=== PATIENT | female | born 1960 | race Caucasian/White ===

== ENCOUNTER 2020-05-12 09:24 | Outpatient (CLI) | payer OTHER, SELFPAY ==
--- NOTE | 2020-05-12 11:00 | NEURO_ITS ---
Patient Number: [id number] Impression: # Complains of right hand being stiff in am. History of carpal tunnel release. # Only right median sensory terminal latency prolonged compared to ulnar. # Normal needle/EMG exam; No evidence of myotonia or fibrillation. # Clinical correlation recommended. Nerve Conduction Studies Anti Sensory Summary Table Stim Site NR Peak (ms) P-T Amp (?V) Site1 Site2 Delta-P (ms) Dist (cm) Patric (m/s) Right Median Anti Sensory (2-3nd Digit) Wrist 3.4 39.7 Wrist 2-3nd Digit 3.4 14.0 41 Wrist 3.5 47.7 Wrist 2-3nd Digit 3.4 14.0 41 Right Radial Anti Sensory (Base 1st Digit) Wrist 2.3 28.3 Wrist Base 1st Digit 2.3 0.0 Right Ulnar Anti Sensory (5th Digit) Wrist 2.4 44.5 Wrist 5th Digit 2.4 14.0 58 Motor Summary Table Stim Site NR Onset (ms) O-P Amp (mV) Site1 Site2 Delta-0 (ms) Dist (cm) Patric (m/s) Right Median Motor (Abd Poll Brev) Wrist 3.3 5.1 Elbow Wrist 5.1 28.0 55 Elbow 8.4 4.1 Right Ulnar Motor (Abd Dig Minimi) Wrist 3.0 2.1 A Elbow Wrist 5.0 29.0 58 A Elbow 8.0 1.6 F Wave Studies NR F-Lat (ms) L-R F-Lat (ms) Right Median (Mrkrs) (Abd Poll Brev) 27.42 Right Ulnar (Mrkrs) (Abd Dig Min) 27.39 EMG Side Muscle Nerve Root Ins Act Fibs Amp Dur Recrt Comment Right 1stDorInt Ulnar C8-T1 Nml Nml Nml Nml Nml Right Ext Indicis Radial (Post Int) C7-8 Nml Nml Nml Nml Nml Right Ext Digitorum Radial (Post Int) C7-8 Nml Nml Nml Nml Nml Right BrachioRad Radial C5-6 Nml Nml Nml Nml Nml Right PronatorTeres Median C6-7 Nml Nml Nml Nml Nml Right Abd Poll Brev Median C8-T1 Nml Nml Nml Nml Nml Right ABD Dig Min Ulnar C8-T1 Nml Nml Nml Nml Nml MTDD
== END 2020-05-12 09:25 | disposition home or self-care (01) ==
PROVIDERS: PCP Internal Medicine; Visit Provider Nurse Practitioner
DX: R20.0 Anesthesia of skin (principal)
CPT/HCPCS: 95886; 95909

== ENCOUNTER 2020-12-29 11:37 | Outpatient (CLI) | payer OTHER, SELFPAY ==
--- NOTE | ~2020-12-29 | XR_ITS ---
XR wrist RT min 3V 12/29/2020 11:59 Indication: Right wrist pain Procedure: 4 views right wrist Comparison: No prior studies for comparison. Findings: There is an old ulnar styloid avulsion fracture. There is osteoarthritis of the triscaphe a nd first carpometacarpal joint. There are degenerative change of the first MCP and IP joints. No frac ture or traumatic malalignment. Osteopenia. No focal soft tissue abnormality. Impression: 1: Polyarticular osteoarthritis. Reviewed, dictated and finalized at location B. PROTECTION FABRICATOR Impression: 1: Polyarticular osteoarthritis.
== END 2020-12-29 11:38 | disposition home or self-care (01) ==
PROVIDERS: PCP Internal Medicine; Visit Provider Nurse Practitioner
DX: M19.031 Primary osteoarthritis, right wrist (principal)
CPT/HCPCS: 73110

== ENCOUNTER 2021-02-13 11:40 | Emergency (ER) | payer OTHER, SELFPAY ==
--- NOTE | ~2021-02-13 | XR_ITS ---
EXAMINATION: XR foot RT min 3V DATE: 02/13/2021 12:11 INDICATION: Right foot pain and swelling, initial encounter TECHNIQUE: Dorsoplantar, lateral, and 2 oblique views of the right foot were obtained. COMPARISON: None. FINDINGS: There is an acute, traumatic, closed, oblique fracture at the base of the second metatarsal . It is unclear if the fracture involves the joint space. The distal fracture fragment is laterally d isplaced by approximately 2 mm. There is dorsal soft tissue swelling of the foot. No additional acute osseous abnormality is identified. A plantar calcaneal enthesophyte is noted. IMPRESSION: 1. Acute, minimally displaced fracture at the base of the second metatarsal. Reviewed, dictated and finalized at location A.
[2021-02-13 11:59] VITALS: BP 117/59; PULSE 79; RESP 20; TEMP 37.2; O2SAT 100
--- NOTE | 2021-02-13 12:42 | ED.LOWEXIN ---
HPI - Extremity Injury (Lower) General Chief Complaint: Extremity Injury, Lower Stated Complaint: INJURED R FOOT Source: patient and RN notes reviewed Limitations: no limitations History of Present Illness HPI Narrative: The patient, previously mostly healthy on minimal meds, presents with foot pain. Patient states she has a 1 day history of right foot pain that is mild to moderate, worse with motion, better at rest and associated with swelling. No bleeding, deformity; symptoms began when she slipped after she started to arise quickly yesterday- after a shingles shot. She attributes brief lightheadedness to the immunization; no actual LOC, CP, S OB, calf pain/edema, palpitations-has been asymptomatic since then yesterday. She declines same-day hospital referral for presyncope/syncope, stating she will follow up with her PMD that she has lab tests scheduled soon anyway Related Data Home Medications Medication Instructions Recorded Confirmed paroxetine HCl 10 mg PO DAILY 02/13/21 02/13/21 Allergies Allergy/AdvReac Type Severity Reaction Status Date / Time No Known Allergies Allergy Unknown Verified 02/13/21 11:47 Review of Systems Review of Systems: Narrative: General/Constitutional: No weight loss,fever Eyes: N0: Redness,discharge Ears/Nose/Throat: No: Epistaxis,ear discharge Respiratory: Denies: Hemoptysis Gastrointestinal: No Vomiting, Bleeding-rectal Skin: No Lumps, eruption Neurologic: No Focal Weakness,Sz Hematologic: Denies: Petechiae/Purpura Psychiatric: No: Suicida ideationl All Other Systems: Reviewed and Negative PMFSH Past Medical History Medical History (Updated 02/13/21 @ 13:07 by William Cordoba MD) Anxiety Surgical History Surgical History (Updated 12/15/19 @ 07:51 by Edel Marcano CMA) History of carpal tunnel release Family History Family History (Updated 12/15/19 @ 07:54 by Edel Marcano CMA) Mother Heart disease Father Heart disease Hypertension Aneurysm Social History Social History (Updated 12/15/19 @ 07:54 by Edel Marcano CMA) Smoking status: Never smoker Alcohol intake: never Comments At time of signature, agree with nursing past medical, surgical, social and family history. There is no relevant family history pertinent to the presenting complaint Exam Narrative: Exam Narrative: General Appearance: Well appearing, Well nourished, No distress EYE: PERRLA, EOMI, Conjunctiva clear Mouth/Throat: Normal appearing, Normal lips, Supple Respiratory: Airway patent, No respiratory distress Musculoskeletal: Normal strength (mostly intact, limited flexion/extension by pain), Tenderness (proximal tarsal and laterally, with mild decreased ROM), Swelling (prox2-3rd metatarsal), Other (no anterior drawer, no collateral laxity, no Achilles tenderness, no fifth MT tenderness) Skin: Warm, Dry, Normal color Neurological: A&O x3, Speech clear, CN II-XII intact Psychiatric: Normal mood, Normal affect Course Course Emergency Course: Films visualized, interpreted by radiologist, agree, ABnormal see report Vital Signs Vital signs: Vital Signs Temperature 99.0 F 02/13/21 11:59 Pulse Rate 79 02/13/21 11:59 Respiratory Rate 20 02/13/21 11:59 Blood Pressure 117/59 L 02/13/21 11:59 Pulse Oximetry 100 02/13/21 11:59 Temperature 99.0 F 02/13/21 11:59 Pulse Rate 79 02/13/21 11:59 Respiratory Rate 20 02/13/21 11:59 Blood Pressure 117/59 L 02/13/21 11:59 Pulse Oximetry 100 02/13/21 11:59 Discharge Plan Discharge Clinical Impression: Episodic lightheadedness Fracture of metatarsal bone of right foot Qualifiers: Encounter type: initial encounter Metatarsal bone: second Fracture type: closed Fracture alignment: nondisplaced Qualified Code(s): S92.324A - Nondisplaced fracture of second metatarsal bone, right foot, initial encounter for closed fracture Patient Disposition: Home, Self-Care Condition: Improved I
== END 2021-02-13 13:02 | disposition home or self-care (01) ==
PROVIDERS: Emergency Provider Emergency Medicine; PCP Internal Medicine
DX: S92.324A Nondisplaced fracture of second metatarsal bone, right foot, initial encounter for closed fracture (principal); W01.0XXA Fall on same level from slipping, tripping and stumbling without subsequent striking against object, initial encounter; R42 Dizziness and giddiness; F41.9 Anxiety disorder, unspecified
CPT/HCPCS: 29515; 73630; 99214; G0463

== ENCOUNTER 2021-11-21 00:14 | Day surgery (SDC) | payer OTHER, SELFPAY ==
[2021-11-04 09:00] VITALS: BMI 25.9
--- NOTE | 2021-11-16 17:15 | PM.HPGS ---
History of Present Illness History of Present Illness Consent: Risks, benefits, and alternatives have been discussed and questions answered. Patient agrees to proceed with procedure. Chief complaint: neoplasm screening Narrative: Monisha Caldera is a 61 year old female referred for colon cancer screening Review of Systems Review of Systems: All systems reviewed & are unremarkable except as noted in HPI and below PMFSH Past Medical History Medical History Anxiety Claustrophobia Foot fracture, right (~01/2021) Vitamin D deficiency Surgical History Surgical History History of carpal tunnel release Bilateral Family History Family History Mother Heart disease Father Heart disease Hypertension Aneurysm Other Depression High cholesterol Social History Social History Social History: caffeine-4 cups daily coffee Smoking status: Never smoker Alcohol intake: never Substance use: never Substance use type: does not use Living arrangements: with family Gender identity (if verbalized by the patient): Female Spiritual care concerns: No Meds Home Medications and Allergies Home Medications Medication Instructions Recorded Confirmed Type atorvastatin 10 mg tablet 10 mg PO DAILY #90 tablet 09/15/21 11/04/21 Rx cholecalciferol (vitamin D3) 1,250 1,250 mcg PO WEEKLY #8 cap 09/15/21 11/04/21 Rx mcg (50,000 unit) capsule paroxetine HCl 10 mg tablet 10 mg PO DAILY #90 tablet 09/15/21 11/04/21 Rx sumatriptan succinate 100 mg tablet See Rx Instructions PO .COMPLEX #9 10/17/21 11/04/21 Rx tablet Allergies Allergy/AdvReac Type Severity Reaction Status Date / Time No Known Allergies Allergy Unknown Verified 11/21/21 07:39 Exam Const: General: alert Orientation/consciousness: patient oriented x3 Resp: Auscultation: clear to auscultation bilaterally Cardio: Rhythm: regular rhythm GI: GI Palp: Yes Soft to palpation and No Tenderness to palpation present (GI) Neuro: General: patient oriented x3 Assessment and Plan Assessment and plan (1) Screening for colon cancer: Code(s): Z12.11 - Encounter for screening for malignant neoplasm of colon Status: Acute Assessment and Plan: Colonoscopy with possible biopsy or polypectomy or cautery or injection of substances.
[2021-11-21 07:40] VITALS: BP 113/69; PULSE 82; RESP 18; TEMP 36.3; O2SAT 98
[2021-11-21] MEDS: LACTATED RINGERS 1,000 ML 150 ML IV CONT (08:14)
--- NOTE | 2021-11-21 08:14 | P.PNAN_ITS ---
Anes - Initial Pre Proc Eval Procedure: Operation Date: 11/21/21 08:30 Proposed Procedures p Screening Colonoscopy - Jacob Rahman MD Date/Time: 11/21/21 08:14 Surgeon: Jacob Rahman MD Pre Op Diagnosis: neoplasm screening Patient Data Age: 61 Gender: F Height: 1.68 m Weight: 69 kg Last Vital Signs Temp 36.3 C L 11/21/21 07:40 Pulse 82 11/21/21 07:40 Resp 18 11/21/21 07:40 BP 113/69 11/21/21 07:40 Pulse Ox 98 11/21/21 07:40 Allergies Allergy/AdvReac Type Severity Reaction Status Date / Time No Known Allergies Allergy Unknown Verified 11/21/21 07:39 Home Medications Medication Instructions Recorded Confirmed Type atorvastatin 10 mg tablet 10 mg PO DAILY #90 tablet 09/15/21 11/04/21 Rx cholecalciferol (vitamin D3) 1,250 1,250 mcg PO WEEKLY #8 cap 09/15/21 11/04/21 Rx mcg (50,000 unit) capsule paroxetine HCl 10 mg tablet 10 mg PO DAILY #90 tablet 09/15/21 11/04/21 Rx sumatriptan succinate 100 mg tablet See Rx Instructions PO .COMPLEX #9 10/17/21 11/04/21 Rx tablet Patient hx anesthesia problems: none Family hx anesthesia problems: none Results Review: All pre-operative results and documents have been reviewed as part of the pre-operative evaluation. [facility], [facility] Past Medical History Medical History Anxiety Claustrophobia Foot fracture, right (~01/2021) Vitamin D deficiency Surgical History Surgical History History of carpal tunnel release Bilateral Family History Family History Mother Heart disease Father Heart disease Hypertension Aneurysm Other Depression High cholesterol Social History Social History Social History: caffeine-4 cups daily coffee Smoking status: Never smoker Alcohol intake: never Substance use: never Substance use type: does not use Living arrangements: with family Gender identity (if verbalized by the patient): Female Spiritual care concerns: No Anes - Eval Final PreProcedure Day of Procedure 11/21/21 08:14 Patient weight: normal Heart: regular rate and rhythm Lungs: clear to auscultation Airway: Mallampati scale class II Neurological: alert and oriented Last oral intake: >/= 8 hours ASA classification: II Emergent: no Anesthesia type and monitoring: general GIVS and standard monitoring Results Review: All pre-operative results and documents have been reviewed as part of the pre-operative evaluation. Informed Consent: The patient's anesthetic plan and its attendant risks and benefits were discussed with the patient/family/POA. Questions were solicited and answers provided to the satisfaction of the patient/family/POA.
[2021-11-21 08:45] VITALS: BP 96/56; PULSE 71; RESP 14; O2SAT 98
[2021-11-21 08:55] VITALS: BP 100/56; PULSE 70; RESP 20; O2SAT 98
[2021-11-21 09:03] VITALS: BP 101/57; PULSE 69; RESP 14; O2SAT 98
== END 2021-11-21 09:18 | disposition home or self-care (01) ==
PROVIDERS: PCP Internal Medicine; Visit Provider Internal Medicine Gastroenterology
PROC: 0DJD8ZZ Inspection of Lower Intestinal Tract, Via Natural or Artificial Opening Endoscopic (ICD-10-PCS; CPT 45378; principal; 2021-11-21 08:30)
DX: Z12.11 Encounter for screening for malignant neoplasm of colon (principal); F41.9 Anxiety disorder, unspecified; E55.9 Vitamin D deficiency, unspecified; F40.240 Claustrophobia
CPT/HCPCS: 45378; J2704; J7120

== ENCOUNTER 2022-04-15 09:40 | Outpatient (CLI) | payer OTHER, SELFPAY ==
--- NOTE | ~2022-04-15 | DEXA_ITS ---
Bone Density Report Name: RANGEL NEAL Age: 61 Sex: Female Ethnicity: White Date of : 1960 Indication: postmenopausal; screening for osteoporosis; height loss; Referring Provider: GERARD QUINTERO Study: Bone densitometry was performed. Exam Date: April 15, 2022 Accession number: [id number] Bone Density: Region BMD T-score Z-score Classification AP Spine(L1-L4) 1.042 0.0 1.5 Normal Femoral Neck (Left) 0.669 -1.6 -0.3 Osteopenia Total Hip (Left) 0.783 -1.3 -0.3 Osteopenia Femoral Neck (Right) 0.675 -1.6 -0.2 Osteopenia Total Hip (Right) 0.756 -1.5 -0.5 Osteopenia Total Hip Mean 0.770 -1.4 -0.4 Osteopenia World Health Organization criteria for BMD impression classify patients as: Normal (T-score at or above -1.0), Osteopenia (T-score between -1.0 and -2.5), or Osteoporosis (T-score at or below -2.5). 10-year Fracture Risk(1): Major Osteoporotic Fracture 8.7% Hip Fracture 0.9% Reported Risk Factors: [place] (), Neck BMD=0.669, BMI=27.1 (1) FRAX(R) Version 3.08. Fracture probability calculated for an untreated patient. Fracture probability may be lower if the patient has received treatment. Clinical Information Provided by Patient: Has used the following medications: Vitamin D Patient maximum height was 66 Menopause Age: 50 Drinks caffeinated beverages Onset of menses at age 12 Number of children 4 Impression: The patient has low bone mass, based on the Left Femoral Neck T-score. The patient has an estimated ten-year risk of hip fracture of 0.9% and an estimated ten-year risk of major fracture of 8.7%, based on the WHO FRAX algorithm. Discussion: BONE DENSITY IS LOW AT ONE OR MORE SKELETAL SITES. This patient's lowest T-score is low at one or more skeletal sites. It meets the World Health Organization's (WHO) criteria for ?low bone mass? (T-score between -1.0 and -2.5). The patient's 10-year risk of fracture as calculated by FRAX is less than the threshold where pharmacological therapy is recommended by the National Osteoporosis Foundation (NOF). However, all treatment decisions require clinical judgment and consideration of individual patient factors, including patient preferences, comorbidities, previous drug use, risk factors not captured in the FRAX model (e.g., frailty, falls, vitamin D deficiency, increased bone turnover, interval significant decline in bone density) and possible under or overestimation of fracture risk by FRAX. The patient should follow a healthful lifestyle (good nutrition with adequate calcium and vitamin D, and appropriate weight-bearing exercise). Follow-Up: Consider repeating this study in 2 to 3 years to reassess this patient's status, or sooner if there is some new clinical indication. Reported by: JESSE on 04/15/2022 10:06:00 AM.
--- NOTE | ~2022-04-15 | MM_ITS ---
EXAMINATION: MM screening aime BI w edi HISTORY: Screening TECHNIQUE: Craniocaudal and mediolateral oblique 3-D tomosynthesis images were obtained and synthetic 2-D images were generated. CAD analysis was submitted and interpreted. COMPARISON: No prior mammogram is available for comparison at this institution. BREAST PARENCHYMAL COMPOSITION: The breasts are heterogenously dense, which may obscure small masses FINDINGS: There is a focal asymmetry medial aspect of the right breast on CC view. There are no suspi cious masses, calcifications or architectural distortion in the left breast to suggest malignancy. IMPRESSION: 1. Focal right breast asymmetry. 2. Additional mammographic views and possible breast ultrasound are recommended. BI-RADS Category 0: Incomplete: Needs additional imaging evaluation. Reviewed, dictated and finalized at location A. IMPRESSION: 1. Focal right breast asymmetry. 2. Additional mammographic views and possible breast ultrasound are recommended . BI-RADS Category 0: Incomplete: Needs additional imaging evaluation.
== END 2022-04-15 09:41 | disposition home or self-care (01) ==
LOC: ANHIMG 09:41
PROVIDERS: PCP Internal Medicine; Visit Provider Nurse Practitioner
DX: Z12.31 Encounter for screening mammogram for malignant neoplasm of breast (principal); Z78.0 Asymptomatic menopausal state; M85.89 Other specified disorders of bone density and structure, multiple sites; R92.8 Other abnormal and inconclusive findings on diagnostic imaging of breast
CPT/HCPCS: 77063; 77067; 77080

== ENCOUNTER 2022-04-28 13:19 | Outpatient (CLI) | payer OTHER, SELFPAY ==
--- NOTE | ~2022-04-28 | MMUS_ITS ---
EXAMINATION: MM diagnostic aime RT w edi, US breast RT limited HISTORY: Right breast asymmetry on screening mammogram TECHNIQUE: Additional 3-D tomosynthesis images of the right breast were performed and synthetic 2-D i mages were generated. CAD analysis was submitted and interpreted. High resolution limited right breas t ultrasound was performed. COMPARISON: 04/07/2022, 01/29/2020, 04/27/2017 FINDINGS: MAMMOGRAPHIC FINDINGS: There is a return to baseline fibroglandular appearance with spot compression of the right breast in the area questioned on screening mammogram. ULTRASOUND: There is no evidence of focal abnormal solid or cystic mass in the vicinity of the mammographic findi ng in question. IMPRESSION: 1. No mammographic or sonographic evidence of malignancy. 2. Recommend routine screening mammography in one year. BI-RADS Category 1: Negative Reviewed, dictated and finalized at location A. IMPRESSION: 1. No mammographic or sonographic evidence of malignancy. 2. Recommend routine screening mammography in one year. BI-RADS Category 1: Negative
== END 2022-04-28 13:20 | disposition home or self-care (01) ==
LOC: ANHIMG 13:20
PROVIDERS: PCP Internal Medicine; Visit Provider Nurse Practitioner
DX: R92.8 Other abnormal and inconclusive findings on diagnostic imaging of breast (principal)
CPT/HCPCS: 76642; 77061; 77065; G0279

== ENCOUNTER 2022-11-03 08:35 | Outpatient (CLI) | payer OTHER, SELFPAY ==
--- NOTE | 2022-11-03 08:59 | ECG_ITS ---
Measurements Intervals [place] Rate: 62 P: 46 ME: 164 QRS: 58 QRSD: 96 T: 58 QT: 372 QTc: 378 Interpretive Statements SINUS RHYTHM RV CONDUCTION ABNORMALITY BORDERLINE ECG NO PREVIOUS ECG AVAILABLE FOR COMPARISON Electronically Signed On 11-03-2022 10:22:50 ENERGY CONSULTANT by Yoshi Dawn M.D.
== END 2022-11-03 08:36 | disposition home or self-care (01) ==
PROVIDERS: PCP Internal Medicine; Visit Provider Podiatrist Foot & Ankle Surgery
DX: E78.5 Hyperlipidemia, unspecified (principal); Z01.818 Encounter for other preprocedural examination
CPT/HCPCS: 93005

== ENCOUNTER 2022-11-10 00:43 | Day surgery (SDC) | payer OTHER, SELFPAY ==
[2022-10-30 10:20] VITALS: BMI 26.6
--- NOTE | 2022-10-30 10:38 | PC.NURSE ---
Report to the Outpatient Waiting Room, entrance under the green pavilion located off [facility], at time 0745 on date 11/10/22. Planned Procedure Time: _0945. Time changes happen often and if your time is changed the preop area will call you the afternoon before. - You and your visitor will be asked to self-screen and do not enter if you have any COVID symptoms. - Only one visitor is requested with a max of two and NO children visitors are allowed at this time. - The patient visitor may be requested to leave or wait in car when not with patient due to distancing restrictions. - A mask is optional within the hospital. Patients may have clear liquids (water, carbonated beverages, clear teas, apple juice) until 3 hours prior to surgery with a maximum of 20 ounces. - No food from midnight until time of surgery - Infants may have breast milk until 4 hours before surgery, infant formula 6 hours prior to surgery. - Children will be allowed to drink immediately following surgery. If applicable, please bring a bottle or sippy cup to assist with drinking. Juice, water, soda, and popsicles are readily available. For infants on formula, please bring formula the day of surgery. Pacifiers are allowed. Take the following medications with a SIP of water the morning of surgery: Medications to discontinue per physician _vitamins Date to take last dose_11/07/22___ Please no make-up, nail indonesian, hairspray, perfume, deodorant, or body powder the day of surgery. No jewelry (including any body piercings) or valuables the day of surgery, leave them at home. Please take a shower or bath the night before, or the morning of, surgery with an antibacterial soap. Wear comfortable, loose fitting clothing. Children are encouraged to wear pajamas. - Jewelry must be removed prior to entering the operating room. Rings and piercings that are not removed may be cut off. - The hospital will not accept responsibility for valuables. - Please leave all valuables, including medications, at home the day of surgery. If you are going home after surgery, a licensed hazardous materials driver must drive you home. - NO public transportation without another adult if you receive anesthesia. - We recommend that an adult stay with you for 24 hours following discharge. - We also recommend that you do not drive, make important decision, drink alcoholic beverages, or take any drugs that were not prescribed by your health care provider for at least 24 hours after your discharge time. For Pediatric surgeries, we recommend two adults accompany the child home. Follow any additional instructions given to you from your surgeon. If you or anyone in your household have experienced Covid symptoms in the past week, please notify your surgeon or the nurse liaison at the phone number below for possible testing. Telephone instructions given to Adam Caldera and asked if any additional questions and then verbalized understanding. Patient advised to call surgeon office or pre surgery nurse liaison [phone] if any additional questions.
[2022-11-10] VITALS (10 sets, daily range): BP systolic 91–118; BP diastolic 53–66; PULSE 56–72; RESP 13–16; TEMP 36.8; O2SAT 98–100
--- NOTE | ~2022-11-10 | XR_ITS ---
EXAMINATION: XR surgery orthopedic DATE: 11/10/2022 11:04 INDICATION: Left foot arthrodesis TECHNIQUE: 2 fluoroscopic images in dorsal plantar and lateral projection of the left fore and midfoo t were obtained during procedure performed by Dr. Durbin. Radiologist was not present for the imagi ng or procedure. The amount of fluoroscopy time used during this procedure was 0.1 minutes. COMPARISON: None. FINDINGS: Left first metatarsophalangeal arthrodesis with dorsal plate and screw fixation which appears in near -anatomic alignment. No fracture. 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 IMPRESSION: 1. Expected appearance post instrumented left first metatarsophalangeal arthrodesis. Reviewed, dictated and finalized at location A. ER BALANCE WHEEL SCREW HOLE IMPRESSION: 1. Expected appearance post instrumented left first metatarsophalangeal arthrod esis.
--- NOTE | 2022-11-10 07:23 | WPDHPUPDATE1 ---
History and Physical Update Update Date/Time: 11/10/22 07:23 History and Physical has been reviewed, including an updated exam of the patient. There are NO changes in the patient's condition. Risks, benefits, and alternatives have been discussed and questions answered. Patient agrees to proceed with procedure.
[2022-11-10] MEDS: LACTATED RINGERS 1,000 ML 30 ML IV CONT ×2 (08:25→11:07)
--- NOTE | 2022-11-10 08:39 | WPDANESEPPF ---
Anes - Initial Pre Proc Eval Procedure: Operation Date: 11/10/22 09:45 Proposed Procedures p Arthrodesis of First Metatarsal Phalangeal Joint Left Foot - Fredy Durbin JR, MD Date/Time: 11/10/22 08:39 Surgeon: Fredy Durbin JR, MD Pre Op Diagnosis: Arthritis 1st MPJ Left Foot Patient Data Age: 62 Gender: F Height: 1.68 m Weight: 76.6 kg Last Vital Signs Temp 36.8 C 11/10/22 08:13 Pulse 72 11/10/22 08:13 Resp 14 11/10/22 08:13 BP 91/53 L 11/10/22 08:13 Pulse Ox 98 11/10/22 08:13 O2 Del Method Room Air 11/10/22 08:13 Allergies Allergy/AdvReac Type Severity Reaction Status Date / Time No Known Allergies Allergy Unknown Verified 11/10/22 08:25 Home Medications Medication Instructions Recorded Confirmed Type cholecalciferol (vitamin D3) 50 50 mcg PO DAILY 04/21/22 10/30/22 History mcg (2,000 unit) capsule paroxetine HCl 10 mg tablet 20 mg PO DAILY #90 tabs 04/21/22 10/30/22 Rx sumatriptan succinate 100 mg tablet See Rx Instructions .Route 10/11/22 10/30/22 Rx .COMPLEX #9 tabs atorvastatin 10 mg tablet 10 mg PO DAILY #90 tabs 10/24/22 10/30/22 Rx Patient hx anesthesia problems: none Family hx anesthesia problems: none Results Review: All pre-operative results and documents have been reviewed as part of the pre-operative evaluation. [facility] [place] Past Medical History Medical History Anxiety Claustrophobia Foot fracture, right (~01/2021) Hx of migraines Osteopenia Vitamin D deficiency Surgical History Surgical History History of carpal tunnel release Bilateral Family History Family History Mother Heart disease Father Heart disease Hypertension Aneurysm Other Depression High cholesterol Social History Social History Social History: caffeine-4 cups daily coffee Smoking status: Never smoker Alcohol intake: never Substance use: never Substance use type: does not use Living arrangements: alone Gender identity (if verbalized by the patient): Female Spiritual care concerns: No Anes - Eval Final PreProcedure Day of Procedure 11/10/22 08:39 Patient weight: overweight Heart: regular rate and rhythm Lungs: clear to auscultation Airway: Mallampati scale class 1 Neurological: alert and oriented Last oral intake: >/= 8 hours ASA classification: II Emergent: no Anesthetic plan: proceed Anesthesia type and monitoring: general LMA and standard monitoring Results Review: All pre-operative results and documents have been reviewed as part of the pre-operative evaluation. Informed Consent: The patient's anesthetic plan and its attendant risks and benefits were discussed with the patient/family/POA. Questions were solicited and answers provided to the satisfaction of the patient/family/POA.
--- NOTE | 2022-11-10 09:46 | WPDANESPNB ---
Anes - Peripheral Nerve Block Date/Time: 11/10/22 09:46 I have discussed with the patient/family/POA the placement of a peripheral nerve block for post-operative pain management, including associated risks, benefits, complications, and side effects. Alternative methods of post-operative analgesia were detailed. Questions were solicited and answers provided to the satisfaction of the patient/family/POA. Time-Out: A pre-procedural Time-Out was completed immediately before starting the procedure and confirmed: Patient Identification, Site, Procedure, Patient Position and the Availability of Requisite Equipment. Clinical Indications: Acute post-operative pain management requested by the operative surgeon. Nerve Block Insertion Note Anes-nerve block: posterior fossa sciatic left and other (saphenous) Patient position: supine Skin prep: chlorhexidine Needle: 22 gauge, stimulating, insulated echogenic needle. Needle length: 80 mm Technique: nerve stimulation lost at (mA) (0.3) Injectate: bupivacaine 0.5% with epi 5 mcg/ml (30cc) and dexamethasone (mg) (8) Observations: tolerated well Complications: none Procedure start time:: 939 Procedure end time:: 947
[2022-11-10] MEDS: ceFAZolin 2 GM/D5W 50 ML 2 GM/50 ML BAG IVPB (10:02)
--- NOTE | 2022-11-10 11:17 | W.PM.PROC2 ---
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 A pneumatic ankle tourniquet was placed about the patient's ipsilateral ankle. Following general anesthesia and popliteal fossa block the foot was then scrubbed, prepped, and draped in the usual aseptic manner. An Esmarch bandage was then used to exsanguinate the patient's foot and the pneumatic ankle tourniquet was then inflated. Surgery began in the following manner: Attention was directed to the dorsal aspect of the 1st metatarsophalangeal joint where there was a large subcutaneous prominence noted along the dorsomedial aspect of the joint. The incision was made starting along the central shaft of the 1st metatarsal and extending just proximal to the interphalangeal joint of the hallux. The incision was continued deep down through the subcutaneous tissues using sharp and blunt dissection. All bleeders were cauterized as necessary. At this point, the dissection was continued down to the level of the periosteum and capsular structures overlying the 1st metatarsophalangeal joint. A full length periosteum and capsular incision was made just medial to the extensor hallucis longus tendon. The periosteum and capsular structures were freed from the base of the proximal phalanx as well as the distal 1st metatarsal. At this point, the 1st metatarsophalangeal joint was identified. There was almost complete loss of articular cartilage to the head of the 1st metatarsal as well as the base of the proximal phalanx. There was significant broadening and hypertrophy of the 1st metatarsophalangeal joint. Utilizing a sagittal bone saw, the hypertrophied 1st metatarsal was resected dorsally, medially, and laterally. A power bur was used to make sure that there were no rough edges and also to further debride the hypertrophic 1st metatarsal. Next, a rongeur was used to resect all hypertrophic base of the proximal phalanx. At this point, the reamer system for the [facility] [facility] CrossCHECK system was used to denude the degenerative cartilage from the head of the 1st metatarsal as well as the base of the proximal phalanx. The cartilage and subchondral bone were fully debrided utilizing the reamer system until healthy bleeding bone was noted. Next, a 2-0 drill bit was used to further fenestrate the head of the 1st metatarsal as well as the base of the proximal phalanx in order to allow fusion across the 1st metatarsophalangeal joint. Next, a 0.045 inch K-wire was driven from the medial aspect of the base of the proximal phalanx into the head of the 1st metatarsal in order to serve as temporary fixation. A large steel plate was used to make sure that the hallux was in a rectus position both in the sagittal plane as well as the frontal and transverse plane. Excellent position of the hallux was noted. Next, a CrossCHECK plate was placed atop the 1st metatarsophalangeal joint held in position with [place] wires. Utilizing standard principles and techniques, the 2 distal drill holes were drilled and two 2.7mm mm fully-threaded locking screws were driven from dorsal to plantar holding the distal aspect of the plate intact. At this point, a 3.5mm lag screw was driven from dorsal distal to proximal plantar across the 1st metatarsophalangeal joint through the plate system with excellent compression noted after careful removal of the olive wire and temporary fixation from the 1st metatarsophalangea
== END 2022-11-10 13:31 | disposition home or self-care (01) ==
PROVIDERS: PCP Internal Medicine; Visit Provider Podiatrist Foot & Ankle Surgery
PROC: (CPT 28750; principal; 2022-11-10 09:45)
DX: M19.072 Primary osteoarthritis, left ankle and foot (principal); G89.18 Other acute postprocedural pain; E55.9 Vitamin D deficiency, unspecified; F41.9 Anxiety disorder, unspecified
CPT/HCPCS: 28750; 64450; 64445; 93005; 99199; C1713; J0690; J1100; J2250; J2370; J2405; J2704; J3010; J7120

== ENCOUNTER 2024-03-14 07:38 | Outpatient (CLI) | payer OTHER, SELFPAY ==
--- NOTE | ~2024-03-14 | MM_ITS ---
EXAMINATION: MM screening aime BI w edi HISTORY: Screening mammogram TECHNIQUE: Craniocaudal and mediolateral oblique 3-D tomosynthesis images were obtained and synthetic 2-D images were generated. CAD analysis was submitted and interpreted. COMPARISON: 04/15/2022, 01/29/2020 BREAST PARENCHYMAL COMPOSITION:Dense: The breasts are heterogeneously dense, which may obscure small masses. FINDINGS: No suspicious mass, calcification, or architectural distortion are identified in either lorenzo ast to suggest malignancy. There has been no suspicious interval change. IMPRESSION: No mammographic evidence of malignancy. Recommend routine screening mammography in one year. BI-RADS Category 1: Negative Reviewed, dictated and finalized at location .
== END 2024-03-14 07:39 | disposition home or self-care (01) ==
LOC: ANHIMG 07:39
PROVIDERS: PCP Internal Medicine; Visit Provider Nurse Practitioner
DX: Z12.31 Encounter for screening mammogram for malignant neoplasm of breast (principal)
CPT/HCPCS: 77063; 77067